=== PATIENT | female | born 1970 | race Caucasian/White ===

== ENCOUNTER 2024-12-08 08:54 | Emergency (ER) | payer OTHER ==
[~2024-12-08] VITALS: Ht 167.6 cm; Wt 84.1 kg
[2024-12-08 09:33] LABS: BASO % 0.7 % (0.0-1.0); EOS # 0.1 10^3/uL (0.0-0.5); EOS % 2.6 % (0.0-3.0); HEMATOCRIT 42.4 % (36.0-47.0); HEMOGLOBIN 14.7 g/dl (12.0-15.5); LYMPH # 1.5 10^3/uL (1.5-5.0); LYMPH % 27.2 % (24.0-44.0); MEAN CORPUSCULAR HEMOGLOBIN 30.9 pg (27.0-33.0); MEAN CORPUSCULAR HGB CONC 34.7 g/dl (32.0-36.5); MEAN CORPUSCULAR VOLUME 89.3 fl (80.0-96.0); MONO # 0.6 10^3/uL (0.0-0.8); MONO % 10.5 % (2.0-8.0); NEUTROPHILS # 3.2 10^3/uL (1.5-8.5); NEUTROPHILS % 58.8 % (36.0-66.0); PLATELET COUNT, AUTOMATED 174 10^3/uL (150-450); RED BLOOD COUNT 4.75 10^6/uL (4.00-5.40); WHITE BLOOD COUNT 5.4 10^3/uL (4.0-10.0)
[2024-12-08 09:56] LABS: BLOOD UREA NITROGEN 15 MG/DL (9-23); CALCIUM LEVEL 9.1 MG/DL (8.5-10.1); CARBON DIOXIDE LEVEL 26 MMOL/L (20-31); CHLORIDE LEVEL 108 MMOL/L (98-107); CREATININE FOR GFR 0.92 MG/DL (0.55-1.30); GLOMERULAR FILTRATION RATE > 60.0 (>51); GLUCOSE, FASTING 97 MG/DL (60-100); POTASSIUM SERUM 3.8 MMOL/L (3.5-5.1); SODIUM LEVEL 143 MMOL/L (136-145)
[2024-12-08 09:58] LABS: THYROID STIMULATING HORMONE 1.238 uIU/ML (0.55-4.78)
[2024-12-08 11:06] LABS: ALBUMIN 3.8 G/DL (3.2-5.2); ALKALINE PHOSPHATASE 79 U/L (35-104); ALT/SGPT 20 U/L (7.0-40); AST/SGOT 14 U/L (<34); BILIRUBIN,DIRECT 0.1 MG/DL (<0.4); BILIRUBIN,TOTAL 0.5 MG/DL (0.3-1.2); CPK CREATINE PHOSPHOKINASE 83 U/L (34-145); TOTAL PROTEIN 6.7 G/DL (5.7-8.2)
[2024-12-08 11:10] LABS: CK-MB VALUE MASS < 1.0 NG/ML (<3.6)
[2024-12-08 11:25] LABS: CK-MB VALUE MASS < 1.0 NG/ML (<3.6)
[2024-12-08 11:26] LABS: CPK CREATINE PHOSPHOKINASE 80 U/L (34-145); MB/CK RELATIVE INDEX 1.25 (< OR =4)
[2024-12-08 13:08] LABS: CPK CREATINE PHOSPHOKINASE 86 U/L (34-145)
[2024-12-08 13:13] LABS: CK-MB VALUE MASS < 1.0 NG/ML (<3.6); MB/CK RELATIVE INDEX 1.16 (< OR =4)
[2024-12-08 14:18] VITALS: BP 114/73; TEMP 97.1; O2SAT 98
== END 2024-12-08 14:20 | disposition home or self-care (01) ==
LOC: EDBD 08:54 → M ED 08:54
DX: R55 Syncope and collapse (principal); I44.7 Left bundle-branch block, unspecified

== ENCOUNTER 2025-01-24 23:54 | Emergency (ER) | payer OTHER ==
[~2025-01-24] VITALS: Ht 167.6 cm; Wt 78.4 kg
[2025-01-25] MEDS ORDERED: SERTRALINE (00:09)
[2025-01-25] MEDS ORDERED: BUSP5TA (00:09)
[2025-01-25] MEDS ORDERED: PEPT262T2 PO (00:09)
[2025-01-25 02:54] VITALS: TEMP 97.5
[2025-01-25] MEDS: ONDANSETRON 4MG ORAL DISINTEGRATING TAB PO ONE (04:13)
[2025-01-25 05:01] VITALS: BP 130/73
[2025-01-25] MEDS ORDERED: ONDA-282 PO (05:02)
[2025-01-25 05:18] VITALS: O2SAT 80
== END 2025-01-25 05:27 | disposition home or self-care (01) ==
LOC: EDBD 23:54 → M ED 23:54
DX: K52.9 Noninfective gastroenteritis and colitis, unspecified (principal); E86.0 Dehydration; F41.9 Anxiety disorder, unspecified; Z79.83 Long term (current) use of bisphosphonates; Z79.899 Other long term (current) drug therapy

== ENCOUNTER 2025-02-28 08:16 | Emergency (ER) | payer OTHER ==
[~2025-02-28] VITALS: Ht 167.6 cm; Wt 79.3 kg
[~2025-02-28 08:16] MED LIST: BUSP5TA; ONDA-282 PO; PEPT262T2 PO; SERTRALINE
[2025-02-28] MEDS ORDERED: FAMO1TAB11 (08:28)
[2025-02-28] MEDS ORDERED: VENL37.598 (08:28)
[2025-02-28] MEDS ORDERED: ALPR0.25 (08:28)
[2025-02-28] MEDS ORDERED: METH-1386 (08:28)
[2025-02-28 12:41] VITALS: BP 135/81; TEMP 97.1; O2SAT 100
== END 2025-02-28 12:44 | disposition home or self-care (01) ==
LOC: M ED 08:16
DX: F41.1 Generalized anxiety disorder (principal); Z79.899 Other long term (current) drug therapy